=== PATIENT | male | born 1945 | race Caucasian/White ===

== ENCOUNTER 2019-09-04 12:44 | Outpatient (REF) | payer MEDICARE, SELFPAY ==
[2019-09-04 21:49] LABS: HCT 28.8 % (40.0-50.0); Mean Corp. HGB Concentration 31.3 g/dL (32.0-36.0); Mean Corpuscular Hemoglobin 29.8 pg (27.0-33.0); Mean Corpuscular Volume 95.4 fL (80-95); Mean Platelet Volume 11.5 fL (8.0-11.0); Platelet Count 193 x1000/uL (130-400); RBC 3.02 m/cumm (4.50-6.00); RBC Distribution Width 16.9 % (11.8-14.1); White Blood Cell Count 6.62 k/cumm (4.4-10.8)
[2019-09-04 22:04] LABS: Anion Gap 6.6 mmol/L (3-11); BUN 17 mg/dL (7-18); CO2 27.4 mmol/L (21.0-32.0); CREATININE 1.01 mg/dL (0.70-1.30); Calcium 7.6 mg/dL (8.5-10.1); Chloride 107 mmol/L (98-107); Glucose 113 mg/dL (74-106); Potassium 4.1 mmol/L (3.5-5.1); Sodium 141 mmol/L (136-145)
[2019-09-04 22:17] LABS: Hemoglobin A1C 5.9 % (3.8-5.6)
== END 2019-09-04 13:04 ==
LOC: NCHCN 12:44
PROVIDERS: PCP Family Medicine; Visit Provider Registered Nurse
DX: E11.9 Type 2 diabetes mellitus without complications (principal); N18.9 Chronic kidney disease, unspecified; D50.9 Iron deficiency anemia, unspecified; K62.5 Hemorrhage of anus and rectum
CPT/HCPCS: 80048; 85027; 83036

== ENCOUNTER 2020-03-07 15:20 | Outpatient (REF) | payer MEDICARE, SELFPAY ==
[2020-03-07 20:41] LABS: HCT 36.3 % (40.0-50.0); HGB 10.9 g/dL (13.5-17.5); MCH 26.3 pg (27.0-33.0); MCV 87.7 fL (80-95); MPV 12.7 fL (8.0-11.0); Platelet Count 196 10^3/uL (130-400); RBC 4.14 10^6/uL (4.36-5.78); RDW 16.7 % (11.8-14.1); RDW-SD 53.3 fL; WBC 4.85 10^3/uL (4.4-10.8)
[2020-03-07 20:59] LABS: Iron 22 ug/dL (65-175); Total Iron Binding Capacity 368 ug/dL (250-450); Transferrin Sat 6 % (20-55)
[2020-03-07 21:13] LABS: Ferritin 9 ng/mL (26-388)
[2020-03-07 21:18] LABS: Hemoglobin A1C 6.5 % (3.8-5.6)
== END 2020-03-07 15:40 ==
LOC: NCHCN 15:20
PROVIDERS: PCP Family Medicine; Visit Provider Family Medicine
DX: D50.9 Iron deficiency anemia, unspecified (principal); K62.5 Hemorrhage of anus and rectum; R19.5 Other fecal abnormalities; E11.9 Type 2 diabetes mellitus without complications
CPT/HCPCS: 85027; 82728; 83036; 83540; 83550